=== PATIENT | male | born 1950 | race Caucasian/White ===

== ENCOUNTER 2018-04-19 19:01 | Observation (INO) | payer MEDICARE, OTHER ==
[2018-04-19] MEDS ORDERED: Nitrostat 0.4 MG (ED) SL ONE ×2 (19:15→19:20)
--- NOTE | 2018-04-19 19:23 | ERPHSYRPT ---
- History of Present Illness Time Seen by Provider: 04/19/18 19:07 Historian: patient Exam Limitations: no limitations Patient Subjective Stated Complaint: pt states he has been having tightness in his chest for a while now. worse today with vomiting tonight Triage Nursing Assessment: pt alert and oriented, answers questions approp. pt arrive in wheelchair, transfer from wheelchair to stretcher with assist of 2. skin warm, moist. respirations nonlabored with lungs cta. sinus rhythm at 70 on monitor. Physician History: 67 y/o male with history of CAD with 1 stent placed and pacemaker comes to the ER with complaints of chest tightness that started yesterday. Today, patient has been having more constant pain. Pt describes the pain as tightness, 8/10, constant, and not relieved by ASA. Pt did vomit prior to arrival. Pt denies any shortness of breath, palpitations or dizziness. Database Technician is Dr Sharpe. Timing/Duration: yesterday Activities at Onset: none Quality: tightness Location: substernal Chest Pain Radiation: no radiation Severity of Pain-Max: severe Severity of Pain-Current: severe Modifying Factors: Improves With: nothing Associated Symptoms: nausea, vomiting Prior Chest Pain/Cardiac Workup: no prior chest pain Nitro Today/Relief: no nitro taken today Aspirin Treatment Today: 325 mg x 1 Allergies/Adverse Reactions: No Known Drug Allergies Allergy (Verified 04/19/18 19:54) Hx Tetanus, Diphtheria Vaccination/Date Given: Yes Hx Influenza Vaccination/Date Given: No Hx Pneumococcal Vaccination/Date Given: No Immunizations Up to Date: Yes - Review of Systems Constitutional: No Fever, No Chills Eyes: No Symptoms Ears, Nose, & Throat: No Symptoms Respiratory: No Cough, No Dyspnea Cardiac: Chest Pain, No Edema, No Syncope Abdominal/Gastrointestinal: Nausea, Vomiting, No Abdominal Pain, No Diarrhea Genitourinary Symptoms: No Dysuria Musculoskeletal: No Back Pain, No Neck Pain Skin: No Rash Neurological: No Dizziness, No Focal Weakness, No Sensory Changes Psychological: No Symptoms Endocrine: No Symptoms All Other Systems: Reviewed and Negative - Past Medical History Pertinent Past Medical History: Yes Neurological History: Stroke Cardiac History: Coronary Artery Disease, Hypertension, Myocardial Infarction ( [place]) Endocrine Medical History: Diabetes Type II - Past Surgical History Past Surgical History: Yes Cardiac: Cardiac Catheterization, Cardiac Stent, Internal Defibrillator, Pacemaker Musculoskeletal: Amputation Other Surgical History: toe amputation - Social History Smoking Status: Former smoker Exposure to second hand smoke: No Drug Use: none Patient Lives Alone: No - Nursing Vital Signs Nursing Vital Signs: Initial Vital Signs Pulse Rate 74 04/19/18 19:08 Respiratory Rate 18 04/19/18 19:08 Blood Pressure 149/93 04/19/18 19:08 O2 Sat by Pulse Oximetry 100 04/19/18 19:08 Pain Scale Pain Intensity 7 - Physical Exam General Appearance: mild distress, alert Eye Exam: PERRL/EOMI, eyes nml inspection Ears, Nose, Throat Exam: normal ENT inspection, moist mucous membranes Neck Exam: normal inspection, non-tender, supple, full range of motion Respiratory Exam: normal breath sounds, lungs clear, No respiratory distress Cardiovascular Exam: regular rate/rhythm, normal heart sounds Gastrointestinal/Abdomen Exam: soft, No tenderness, No mass Back Exam: normal inspection, No CVA tenderness, No vertebral tenderness Extremity Exam: normal inspection, normal range of motion Neurologic Exam: alert, oriented x 3, cooperative, normal mood/affect, sensation nml, No motor deficits Skin Exam: normal color, warm, dry SpO2: 100 Oxygen Delivery: Room Air - Course Nursing assessment & vital signs reviewed: Yes EKG Interpreted by Me: RATE, NORMAL AXIS, NORMAL INTERVALS, NORMAL QRS Ordered Tests: Active Orders 24 hr Category Date Time Status Air Crew Supervisor STAT Care 04/19/18 19:16 Active EKG-ER Only STAT Care 04/19/18 19:15 Active IV Insertion STAT Care 04/19/18 19:15 Active CHEST 1 VIEW (PORTABLE) Stat Exams 04/19/18 19:16 Taken AMYLASE Stat Lab 04/19/18 19:10 Completed CBC W DIFF Stat Lab 04/19/18 19:10 Completed CK-Creatinine Phosphokinase Stat Lab 04/19/18 19:10 Completed CMP Stat Lab 04/19/18 19:10 Completed D-DIMER QUANTITATION Stat Lab 04/19/18 19:10 Completed LIPASE Stat Lab 04/19/18 19:10 Completed NT PRO BNP Stat Lab 04/19/18 19:10 Completed PROTIME WITH INR Stat Lab 04/19/18 19:10 Completed PTT Stat Lab 04/19/18 19:10 Completed TROPONIN Q3H Lab 04/19/18 19:10 Completed TROPONIN Q3H Lab 04/19/18 22:30 Ordered TROPONIN Q3H Lab 04/20/18 01:30 Ordered TROPONIN Q3H Lab 04/20/18 04:30 Ordered TROPONIN Q3H Lab 04/20/18 07:30 Ordered Medication Summary Discontinued Medications Generic Name Dose Route Start Last Admin Trade Name Prerna PRN Reason Stop Dose Admin Famotidine 20 mg 04/19/18 20:03 04/19/18 20:16 Pepcid 20 Mg Vial IV 04/19/18 20:04 20 mg STAT ONE Administration Famotidine Confirm 04/19/18 20:16 Pepcid 20 Mg Vial Administered 04/19/18 20:17 Dose 20 mg IV .STK-MED ONE Hydromorphone HCl 1 mg 04/19/18 20:31 04/19/18 20:38 Hydromorphone 1 Mg/Ml Ampule IV 04/19/18 20:32 1 mg STAT ONE Administration Hydromorphone HCl Confirm 04/19/18 20:33 Hydromorphone 1 Mg/Ml Ampule Administered 04/19/18 20:34 Dose 1 mg .ROUTE .STK-MED ONE Morphine Sulfate Confirm 04/19/18 19:38 Morphine Sulfate 4 Mg Inj Administered 04/19/18 19:39 Dose 4 mg .ROUTE .STK-MED ONE Morphine Sulfate 4 mg 04/19/18 19:42 04/19/18 19:56 Morphine Sulfate 4 Mg Inj IV 04/19/18 19:43 4 mg STAT ONE Administration Nitroglycerin 0.4 mg 04/19/18 19:15 04/19/18 19:20 Nitrostat 0.4 Mg (Ed) SL 04/19/18 19:16 0.4 mg STAT ONE Administration Nitroglycerin Confirm 04/19/18 19:20 Nitrostat 0.4 Mg (Ed) Administered 04/19/18 19:21 Dose 0.4 mg SL .STK-MED ONE Ondansetron HCl 4 mg 04/19/18 19:46 04/19/18 19:56 Zofran 4 Mg/2 Ml Vial IV 04/19/18 19:47 4 mg STAT ONE Administration Ondansetron HCl Confirm 04/19/18 19:47 Zofran 4 Mg/2 Ml Vial Administered 04/19/18 19:48 Dose 4 mg .ROUTE .STK-MED ONE Lab/Rad Data: Laboratory Result Diagrams 04/19/18 19:10 04/19/18 19:10 Laboratory Results 04/19/18 04/19/18 04/19/18 Range/Units 19:10 19:10 19:10 WBC (4.0-10.5) K/mm3 RBC (4.1-5.6) M/mm3 Hgb (12.5-18.0) gm/dl Hct (42-50) % MCV (78-100) fl MCH (26-32) pg MCHC (32-36) g/dl RDW (11.5-14.0) % Plt Count (150-450) K/mm3 MPV (6-9.5) fl Gran % (36.0-66.0) % Eos # (Auto) (0-0.5) Absolute Lymphs (auto) (1.0-4.6) Absolute Monos (auto) (0.0-1.3) Lymphocytes % (24.0-44.0) % Monocytes % (0.0-12.0) % Eosinophils % (0.00-5.0) % Basophils % (0.0-0.4) % Absolute Granulocytes (1.4-6.9) Basophils # (0-0.4) PT (8.83-12.87) SECONDS INR (0.8-3.0) APTT (24.1-36.1) SECONDS D-Dimer 475 (215-500) ng/mL Sodium (137-145) mmol/L Potassium (3.5-5.1) mmol/L Chloride (98-107) mmol/L Carbon Dioxide (22-30) mmol/L Anion Gap (5-15) MEQ/L BUN (9-20) mg/dL Creatinine (0.66-1.25) mg/dL Estimated GFR ML/MIN Glucose (74-106) mg/dL Calcium (8.4-10.2) mg/dL Total Bilirubin (0.2-1.3) mg/dL AST (17-59) U/L ALT (0-50) U/L Alkaline Phosphatase (38-126) U/L Creatine Kinase (55-170) U/L Troponin I (0.000-0.034) ng/mL NT-Pro-B Natriuret Pep (0-900) pg/mL Serum Total Protein (6.3-8.2) g/dL Albumin (3.5-5.0) g/dL Amylase 126 H (30-110) U/L Lipase 83 (23-300) U/L 04/19/18 04/19/18 04/19/18 Range/Units 19:10 19:10 19:10 WBC (4.0-10.5) K/mm3 RBC (4.1-5.6) M/mm3 Hgb (12.5-18.0) gm/dl Hct (42-50) % MCV (78-100) fl MCH (26-32) pg MCHC (32-36) g/dl RDW (11.5-14.0) % Plt Count (150-450) K/mm3 MPV (6-9.5) fl Gran % (36.0-66.0) % Eos # (Auto) (0-0.5) Absolute Lymphs (auto) (1.0-4.6) Absolute Monos (auto) (0.0-1.3) Lymphocytes % (24.0-44.0) % Monocytes % (0.0-12.0) % Eosinophils % (0.00-5.0) % Basophils % (0.0-0.4) % Absolute Granulocytes (1.4-6.9) Basophils # (0-0.4) PT 11.1 (8.83-12.87) SECONDS INR 0.95 (0.8-3.0) APTT 29.4 (24.1-36.1) SECONDS D-Dimer (215-500) ng/mL Sodium 139 (137-145) mmol/L Potassium 4.4 (3.5-5.1) mmol/L Chloride 101 (98-107) mmol/L Carbon Dioxide 26 (22-30) mmol/L Anion Gap 15.7 H (5-15) MEQ/L BUN 33 H (9-20) mg/dL Creatinine 1.26 H (0.66-1.25) mg/dL Estimated GFR > 60.0 ML/MIN Glucose 179 H (74-106) mg/dL Calcium 9.8 (8.4-10.2) mg/dL Total Bilirubin 0.70 (0.2-1.3) mg/dL AST 31 (17-59) U/L ALT 28 (0-50) U/L Alkaline Phosphatase 45 (38-126) U/L Creatine Kinase 39 L (55-170) U/L Troponin I < 0.012 (0.000-0.034) ng/mL NT-Pro-B Natriuret Pep 495 (0-900) pg/mL Serum Total Protein 6.8 (6.3-8.2) g/dL Albumin 4.5 (3.5-5.0) g/dL Amylase (30-110) U/L Lipase (23-300) U/L 04/19/18 Range/Units 19:10 WBC 7.3 (4.0-10.5) K/mm3 RBC 4.82 (4.1-5.6) M/mm3 Hgb 14.7 (12.5-18.0) gm/dl Hct 42.2 (42-50) % MCV 87.6 (78-100) fl MCH 30.5 (26-32) pg MCHC 34.8 (32-36) g/dl RDW 12.6 (11.5-14.0) % Plt Count 185 (150-450) K/mm3 MPV 8.8 (6-9.5) fl Gran % 73.0 H (36.0-66.0) % Eos # (Auto) 0.20 (0-0.5) Absolute Lymphs (auto) 1.20 (1.0-4.6) Absolute Monos (auto) 0.52 (0.0-1.3) Lymphocytes % 16.6 L (24.0-44.0) % Monocytes % 7.2 (0.0-12.0) % Eosinophils % 2.8 (0.00-5.0) % Basophils % 0.4 (0.0-0.4) % Absolute Granulocytes 5.30 (1.4-6.9) Basophils # 0.03 (0-0.4) PT (8.83-12.87) SECONDS INR (0.8-3.0) APTT (24.1-36.1) SECONDS D-Dimer (215-500) ng/mL Sodium (137-145) mmol/L Potassium (3.5-5.1) mmol/L Chloride (98-107) mmol/L Carbon Dioxide (22-30) mmol/L Anion Gap (5-15) MEQ/L BUN (9-20) mg/dL Creatinine (0.66-1.25) mg/dL Estimated GFR ML/MIN Glucose (74-106) mg/dL Calcium (8.4-10.2) mg/dL Total Bilirubin (0.2-1.3) mg/dL AST (17-59) U/L ALT (0-50) U/L Alkaline Phosphatase (38-126) U/L Creatine Kinase (55-170) U/L Troponin I (0.000-0.034) ng/mL NT-Pro-B Natriuret Pep (0-900) pg/mL Serum Total Protein (6.3-8.2) g/dL Albumin (3.5-5.0) g/dL Amylase (30-110) U/L Lipase (23-300) U/L - Progress Progress: improved Progress Note: 04/19/18 20:59 The EKG and first cardiac enzyme does not show any abnormalities. The d-dimer is within normal limits. The CXR does not show any acute findings. The patient did not have any relief of pain after receiving nitro, pepcid, and morphine, but did have relief after receiving dilaudid. I spoke to Dr Lilly who wants me to discuss the case with Dr Schumacher. Awaiting a call back from Dr Schumacher. 04/19/18 21:[address] Schumacher, patient can be kept here at [facility] to follow up cardiac enzymes. Pt has been admitted to Dr Lilly. - Departure Time of Disposition: 21:08 Departure Disposition: Observation Clinical Impression: Chest pain Qualifiers: Chest pain type: unspecified Qualified Code(s): R07.9 - Chest pain, unspecified Condition: Fair Critical Care Time: Yes Critical Care Time(excluding separately billable procedures): 30-74 minutes Referrals: DOCTOR,NO FAMILY [Primary Care Provider] -
[2018-04-19 19:25] LABS: BASOPHIL % 0.4 % (0.0-0.4); Basophil (Absolute #) 0.03 (0-0.4); Eosinophil % 2.8 % (0.00-5.0); Hematocrit 42.2 % (42-50); Hemoglobin 14.7 gm/dl (12.5-18.0); Lymphocytes % 16.6 % (24.0-44.0); Mean Cell Volume 87.6 fl (78-100); Mean Corpuscular Hemoglobin 30.5 pg (26-32); Mean Corpuscular Hgb Concent. 34.8 g/dl (32-36); Mean Platelet Volume 8.8 fl (6-9.5); Monocyte (Absolute #) 0.52 (0.0-1.3); Monocytes % 7.2 % (0.0-12.0); Platelet Count 185 K/mm3 (150-450); Red Blood Count 4.82 M/mm3 (4.1-5.6); Red Cell Distribution Width 12.6 % (11.5-14.0); White Blood Count 7.3 K/mm3 (4.0-10.5)
[2018-04-19] MEDS ORDERED: MORPHINE SULFATE 4 MG INJ ONE (19:38)
[2018-04-19 19:40] LABS: INR 0.95 (0.8-3.0)
[2018-04-19] MEDS ORDERED: MORPHINE SULFATE 4 MG INJ IV ONE (19:42)
[2018-04-19 19:43] LABS: PTT 29.4 SECONDS (24.1-36.1)
[2018-04-19] MEDS ORDERED: Zofran 4 MG/2 ML VIAL IV ONE (19:46)
[2018-04-19] MEDS ORDERED: Zofran 4 MG/2 ML VIAL ONE (19:47)
[2018-04-19 19:53] LABS: ALBUMIN 4.5 g/dL (3.5-5.0); ALKALINE PHOSPHATASE 45 U/L (38-126); ANION GAP 15.7 MEQ/L (5-15); BLOOD UREA NITROGEN 33 mg/dL (9-20); CHLORIDE 101 mmol/L (98-107); CK-Creatinine Phosphokinase 39 U/L (55-170); Calcium 9.8 mg/dL (8.4-10.2); Carbon Dioxide 26 mmol/L (22-30); Creatinine 1 1.26 mg/dL (0.66-1.25); Glucose 179 mg/dL (74-106); NT PRO BNP 495 pg/mL (0-900); Potassium 4.4 mmol/L (3.5-5.1); SGOT/AST 31 U/L (17-59); SGPT/ALT 28 U/L (0-50); SODIUM 139 mmol/L (137-145); Total Protein 6.8 g/dL (6.3-8.2)
[2018-04-19] MEDS ORDERED: Pepcid 20 MG VIAL IV ONE ×2 (20:03→20:16)
[2018-04-19] MEDS ORDERED: Hydromorphone 1 mg/ml Ampule IV ONE (20:31)
[2018-04-19] MEDS ORDERED: Hydromorphone 1 mg/ml Ampule ONE (20:33)
[2018-04-19] MEDS ORDERED: Senokot-S Tablet PO PRN (21:09)
[2018-04-19] MEDS ORDERED: Zofran 4 MG/2 ML VIAL IV PRN (21:09)
[2018-04-19] MEDS ORDERED: MILK OF MAGNESIA 30 ML PO PRN (21:09)
[2018-04-19] MEDS ORDERED: TYLENOL 325 MG PO PRN (21:09)
[2018-04-19] MEDS ORDERED: MAALOX ES 30 ML UNIT DOSE PO PRN (21:09)
--- NOTE | 2018-04-19 21:41 | XRAY ---
Indication: Chest pain. Emesis. Comparison: None Portable chest is clear. Heart and mediastinal structures within normal limits with left-sided AICD. Bony thorax intact with mild degenerative changes. Impression: Nonacute chest.
[2018-04-20] MEDS: Hydromorphone 1 mg/ml Ampule IV SCH ×2 (02:20→05:47)
[2018-04-20] MEDS ORDERED: DILAUDID 2 MG INJECTION ONE (05:44)
[2018-04-20 05:59] LABS: Risk Ratio 4.3
[2018-04-20 07:45] VITALS: BP 106/56; PULSE 87; O2SAT 99
[2018-04-20] MEDS ORDERED: DILAUDID 2 MG INJECTION IV SCH (10:00)
[2018-04-20] MEDS ORDERED: Ecotrin 325 MG PO SCH (10:00)
--- NOTE | 2018-04-20 10:10 | PCM.DCORD ---
- Discharge Discharge Date: 04/20/18 Disposition: Home, Self-Care Condition: Good Prescriptions: New Omeprazole 40 mg PO DAILY #14 capsule.dr Nguyen Docusate Sodium 100 mg [Colace 100 MG] 100 mg PO BID Furosemide 20 mg [Lasix 20 mg] 20 mg PO DAILY Aspirin EC 325 mg [Ecotrin 325 MG] 325 mg PO DAILY Insulin Glargine,Hum.rec.anlog [Lantus Solostar] 9 units SQ HS Metformin HCl 500 mg [Glucophage 500 MG] 500 mg PO BIDWM Levothyroxine Sodium 50 Mcg [Synthroid 50 Mcg] 50 mcg PO DAILY Calcium Carbonate/Vitamin D3 [Calcium 500 + Vit D 200 Tablet] 1 tab PO DAILY Nitroglycerin 0.4 mg Tablet [Nitrostat 0.4 MG Tablet] 0.4 mg SL Q5MIN PRN MR X 3 PRN PRN Reason: Chest Pain Sacubitril/Valsartan [Entresto 24 mg-26 mg Tablet] 1 each PO BID Ezetimibe 10 mg [Zetia 10 MG] 10 mg PO HS Fenofibrate,Micronized [Fenofibrate] 134 mg PO DAILY Acetaminophen 325 mg [Tylenol 325 mg] 650 mg PO Q4HPRN PRN PRN Reason: Pain Additional Instructions: Follow up with your primary care provider next week. Follow up with: DOCTOR,NO FAMILY [Primary Care Provider] - 1 Week JUHI BAUTISTA [ACTIVE STAFF] - 1 Week
--- NOTE | 2018-04-22 08:12 | HP ---
HISTORY OF PRESENT ILLNESS: This is a 67 year-old man without a physician in the local area here. He reports he sees a nurse practitioner, Stephany, in [place]. He is unsure of her last name. He reports that he just left [facility] this past Sunday and he was there after having had a stroke that affected his left side. He reports that his left side is always numb. He reports he has memory problems. He reports some arthritis in his left leg. He reports he started having chest pain and thought he might be having a heart attack so he came to the emergency department. His pain was controlled there with Dilaudid. He was ruled out for an acute myocardial infarction here in the hospital. The patient reports history of coronary artery disease with one stent and also a pacemaker and defibrillator. It appears he must have some underlying congestive heart failure. His special equipment technician is Dr. Schumacher and Dr. Schumacher was contacted from the emergency department and is aware of his admission. The patient reports the chest pain is much better this morning. He reports that he did vomit once this morning but otherwise he is doing well. REVIEW OF SYSTEMS: As noted in the history of present illness. PAST MEDICAL HISTORY: Stroke, arthritis, hyperlipidemia, memory problems. PAST SURGICAL HISTORY: He reports a surgery on his right foot after a callous was removed and then an infection set in the remote past. MEDICATIONS: Please see the medication reconciliation list which I have reviewed. ALLERGIES: NKDA. SOCIAL HISTORY: His son lives with him and helps take care of him. The patient denies any tobacco abuse. FAMILY HISTORY: Noncontributory. PHYSICAL EXAMINATION: VITAL SIGNS: Temperature current 97.8F, temperature max 97.8F, heart rate 80 to 87, respiratory rate 17 to 18, blood pressure 106 to 126 over 56 to 68. Oxygen saturation 99 to 100% on 2 liters nasal cannula. GENERAL: The patient is a pleasant talkative man sitting up in his chair in no acute distress. CVS: He has a regular rate and rhythm. No murmurs, gallops or rubs are appreciated. CHEST: Clear to auscultation bilaterally. No crackles or wheezes. ABDOMEN: Soft, nontender, nondistended with normal bowel sounds. EXTREMITIES: No clubbing, cyanosis or edema. MUSCULOSKELETAL: He has baseline weakness of his left arm and left leg. LABORATORY DATA AND TESTS: He had serial negative troponins. EKG without any ST or T-wave changes. CMP with LDL of 123. ASSESSMENT AND PLAN: 1) CHEST PAIN: He has ruled out for an acute myocardial infarction. I will have him follow up with his special equipment technician and primary care doctor. I will send him on omeprazole 40 mg p.o. daily as he may be having some gastroesophageal reflux causing his pain. 2) HYPERLIPIDEMIA: Will continue his home medications and will need to follow up with his primary care doctor. 3) HISTORY OF STROKE: He is to continue his current medications. DISPOSITION: The patient was discharged home in fair condition. DISCHARGE MEDICATIONS: Please see his discharge medication list.
== END 2018-04-20 11:20 | disposition home or self-care (01) ==
LOC: ED 19:01 → MED SURG 21:38
PROVIDERS: ADMIT Internal Medicine; ATTEND Internal Medicine
DX: R07.9 Chest pain, unspecified (principal); E78.5 Hyperlipidemia, unspecified; Z86.73 Personal history of transient ischemic attack (TIA), and cerebral infarction without residual deficits; I25.10 Atherosclerotic heart disease of native coronary artery without angina pectoris; Z95.0 Presence of cardiac pacemaker; I50.9 Heart failure, unspecified; Z95.810 Presence of automatic (implantable) cardiac defibrillator; E11.9 Type 2 diabetes mellitus without complications; Z79.4 Long term (current) use of insulin; Z23 Encounter for immunization
CPT/HCPCS: 36000; 36415; 71045; 80053; 80061; 82150; 82550; 83690; 83721; 83880; 84484; 85025; 85379; 85610; 85730; 90686; 93005; 93041; 93268; 94760; 96374; 96375; 99285; G0008; J1170; J2270; J2405; A9270-GY; G0378